=== PATIENT | female | born 1990 | race Caucasian/White ===

== ENCOUNTER 2024-09-05 20:21 | Emergency (ER) | payer BC, SELFPAY ==
[2024-09-05 20:59] LABS: COVID-19 Antigen Negative (Negative)
--- NOTE | 2024-09-05 22:03 | ED.GENMED ---
History of Present Illness
General
Chief Complaint: Fainting/Passed Out
Source: patient
Exam Limitations: none
Time Seen by Provider: 09/05/24 21:34
Nursing documentation reviewed up to this point in time: agreed with
History of Present Illness
History of Present Illness:
Patient is a 33-year-old female who presents after witnessed syncope episode. Patient reports her was taking sutures out of her left arm when she started feel lightheaded and broke out in a sweat and passed out. reports she was out
for several seconds. She now feels much better. In addition she reports recently however she has not been feeling well feeling achy and nauseous. She does admit that today she did not eat a lot. She had no chest pain or difficulty breathing
prior to episode. She just completed her menses.
Past History
Past History
ED Past Medical History: Other (Recent infectious mononucleosis )
ED Past Surgical History: Tonsilectomy and Other (Noncontributory )
Social History
Tobacco: Non-smoker
Alcohol: None
Drug: None
Personal: Single
Living: with family
Employment: Not employed
Review of Systems
Review of Systems
Allergies reviewed?: Yes
All Other Systems: ROS reviewed and negative except as documented in HPI and ROS
Constitutional: Reports no symptoms, fatigue and chills; Denies fever
EENT: Reports no symptoms
Respiratory: Reports no symptoms
Cardiac: Reports syncope; Denies chest pain, diaphoresis or palpitations
ABD/GI: Reports no symptoms
: Reports no symptoms
Musculoskeletal: Reports other (started with body aches for past 2 days )
Skin: Reports no symptoms
Neurological: Reports no symptoms
Psychiatric: Reports no symptoms
Phy Exam
General Physical Exam
General Presentation: no apparent distress
General age: appears stated age
General Skin: warm and dry
General Habitus: normal
General Mental: alert
General Hydration: appears well hydrated
Eye Exam
Eye Exam: PERRL and EOMI
Eye Exam General: PERRL: bilateral and EOM intact: bilateral
Pupil Exam: Bilateral: round and reactive
Neurological Exam
Neurological Exam: alert and oriented x3
Musculoskeletal Exam
Musculoskeletal Exam: full ROM and other (left upper arm with healing wound )
Skin Exam
Skin Exam: normal color, warm/dry and no rash
Course
Orders/Labs/Results
Orders:
Orders
09/05/24 20:33
COVID-19 Antigen Urgent
Source: Nasal Swab
INF RAPID [Influenza A+B Rapid Molecular] Urgent
[facility] Source: Nasal Swab
Specimen Description:
09/05/24 22:18
Electrocardiogram (*1) Stat
Reason for Study: Other
Other Reason for Exam: chest pain
EKG- Treatment ONCE
Vital Signs- Treatment ONCE
Frequency: Once
Vital Signs
Initial and Last Documented VS:
Initial Vital Signs
Temp Pulse Resp Pulse Ox
99.0 F 78 18 99
09/05/24 20:23 09/05/24 20:23 09/05/24 20:23 09/05/24 20:23
Last Documented Vital Signs
Temp Pulse Resp BP Pulse Ox
99.0 F 71 17 131/88 99
09/05/24 20:23 09/05/24 22:33 09/05/24 22:33 09/05/24 22:33 09/05/24 20:23
Operating Room Tech consulted with Physician
Operating Room Tech consulted with physician?: Yes
Name of Physician Consulted: Pawan
MDM/Problems Addressed
Differential Diagnosis Includes:
Not limited to vasovagal syncope
MDM/Problems Addressed:
Symptoms are consistent with vasovagal syncope, reaction from having sutures removed. In addition patient has started to not feel well with bodyaches over the past several days, chills. She presents in no acute distress awake alert no complaints
of chest pain or shortness of breath prior to episode. Patient just completed last menstrual period. She is in no acute distress here ,nontachycardic nontachypneic we will check EKG however stable for discharge home. Case discussed ED physician.
2236: EKG unremarkable. Patient is very nontoxic likely vasovagal episode from having sutures removed patient describes other viral symptoms however nontoxic. COVID flu are negative stable for discharge home.
*Pulse Oximetry
Patient hypoxic: no
*EKG
Interpreted by ED Provider?: Yes
Interpretation: normal
Heart Rate: 73
Rate: normal
Rhythm: sinus
Ischemia: no ischemia
*Critical Care Note
Total Time (30-74mins, 75-104mins- exclusive of procedures): Not Applicable
ED Attending Note
-
Portions of this chart may have been created with voice recognition software.� Occasional wrong word or��sound alike� substitutions may have occurred due to the inherent limitations of voice recognition software.
Discharge Plan
Departure
Patient Disposition: Home (Routine Discharge)
Date of Disposition: 09/05/24
Time of Disposition: 22:38
Patient with high blood pressure during this ER visit?: Yes
Condition: Fair
Covid-19: Not Applicable
Discharge Problem:
Vasovagal episode
Instructions: Vasovagal Response (DC), Syncope (fainting) - Discharge instructions, BLOOD PRESSURE
Prescriptions:
No Action
acetaminophen 325 mg Tablet
650 mg PO Q4HPRN PRN (Reason: mild pain) Qty: 0 0RF
sennosides-docusate sodium 8.6-50 mg Tablet
1 tab PO DAILYPRN PRN (Reason: constipation) Qty: 0 0RF
ibuprofen 600 mg Tablet
400 mg PO Q4HPRN PRN (Reason: moderate pain/cramps) Qty: 0 0RF
amoxicillin-pot clavulanate 875-125 mg tablet
1 tab PO BID 10 Days Qty: 20 0RF
Activity Restrictions/Additional Instructions:
As discussed stay well-hydrated. Follow-up with your family doctor in next several days for reevaluation .return if any worsening of symptoms
Interventions
Interventions:
*Risk Screen - Suicide Last Done: 09/05/24 20:29
*ED COVID-19 Vaccine History Last Done: 09/05/24 20:28
ED- Cardiac Assessment Last Done: 09/05/24 22:32
ED- Neurological Assessment Last Done: 09/05/24 22:32
Discharge Date and Time
Print Language: WELSH
[2024-09-05 22:33] VITALS: BP 131/88
== END 2024-09-05 23:33 | disposition home or self-care (01) ==
LOC: EMR 20:21
PROVIDERS: Emergency Medicine; EMERGENCY PHYSICIAN Emergency Medicine; FAMILY PHYSICIAN Nurse Practitioner Family
DX: R55 Syncope and collapse (principal); B27.90 Infectious mononucleosis, unspecified without complication
CPT/HCPCS: 99283; 87502; 87811; 93005

== ENCOUNTER → 2024-11-01 13:57 | Outpatient (REF) | payer BC, SELFPAY | LOC: CLAB 13:57 | PROVIDERS: ATTENDING PHYSICIAN Surgery | DX: N63.21 Unspecified lump in the left breast, upper outer quadrant (principal) | CPT/HCPCS: 88305 ==

== ENCOUNTER → 2025-04-21 14:24 | Outpatient (REF) | payer BC, SELFPAY | LOC: HWRAD 14:24 | PROVIDERS: ATTENDING PHYSICIAN Nurse Practitioner Family | DX: R07.81 Pleurodynia (principal) | CPT/HCPCS: 71111 ==